=== PATIENT | male | born 1960 | race Caucasian/White ===

== ENCOUNTER → 2025-03-14 | Outpatient (CLI) | payer OTHER, SELFPAY ==
[2025-03-14 09:01] LABS: Alanine Aminotransferase 59 U/L (10-49); Albumin, Serum 4.4 gm/dL (3.4-4.8); Albumin/Globulin Ratio 2.1 (1.2-2.2); Alkaline Phosphatase 70 U/L (46-116); Anion Gap 11 (7-16); Aspartate Amino Transferase 37 U/L (0-34); BUN/Creatinine Ratio 15 Ratio (12-20); Bilirubin,Total 1.1 mg/dL (0.3-1.2); Blood Urea Nitrogen 17 mg/dL (9-23); Calcium 8.9 mg/dL (8.3-10.6); Calcium (Corrected) 8.9 mg/dL (8.5-10.1); Carbon Dioxide 27.9 mMol/L (20.0-31.0); Chloride 107 mMol/L (98-107); Creatinine (Component) 1.1 mg/dL (0.6-1.3); Globulin 2.1 gm/dL (2.3-3.5); Glucose 121 mg/dL (74-106); Osmolality,Calculated 293 (275-295); Sodium 146 mMol/L (136-145); Total Protein 6.5 gm/dL (5.7-8.2); eGFR > 60 See Note
== END | disposition home or self-care (01) ==
PROVIDERS: Referring Provider Orthopaedic Surgery; Visit Provider Orthopaedic Surgery
DX: Z01.89 Encounter for other specified special examinations (principal); Z79.1 Long term (current) use of non-steroidal anti-inflammatories (NSAID)
CPT/HCPCS: 36415; 80053

== ENCOUNTER 2025-07-04 08:23 | Outpatient (AMB) | payer OTHER, SELFPAY ==
[2025-07-04 08:46] VITALS: BP 183/102; PULSE 81; RESP 18; TEMP 36.1; O2SAT 94; BMI 41.1
--- NOTE | 2025-07-04 08:46 | PD.ORTHCLVIS ---
Vital signs 07/04/25 08:46 Height 1.91 m Height Method Measured Weight 149.005 kg Weight Measurement Method Standing Scale BMI 41.1 BP 183/102 H Blood Pressure Source Automatic Cuff Blood Pressure Location Left Upper Arm Position Sitting Respiration 18 Pulse 81 Pulse Source Monitor Temp 96.9 F Temp Source Temporal Artery Scan Pulse Oximetry (%) 94 L Oxygen Delivery Method Room Air Med/Allergies Allergies & Medications Allergies NKA* Allergy (Uncoded 07/04/25 08:48) Medication Reconciliation Losartan Potassium * (COZAAR *) 25 mg PO QDAY #0 tabs 11/13/15 [History Confirmed 07/04/25] Exam Exam Patient is in no acute distress and is cooperative with the examination today. Breathing is nonlabored. In no respiratory distress. Bilateral extremities were evaluated and demonstrates sensation intact to light touch. Palpable pedal pulses are present. No significant edema is present. Bilateral hips were examined. The patient has no pain with log roll of the hips. Internal rotation to 30 degrees and external rotation to 30 degrees is painless. Negative FADIR. The left knee was examined. The left knee is in neutral alignment. Range of motion from 0-120 degrees. Knee is stable to varus and valgus as well as AP translation with <5mm. Patient has a negative McMurrays. There is no pain with patellofemoral compression and no crepitus noted. The knee is nontender to palpation diffusely. The right knee was also examined. The right knee is in neutral alignment. Range of motion from 0-120 degrees. Knee is stable to varus and valgus as well as AP translation with <5mm. Patient has a negative McMurrays. There is no pain with patellofemoral compression and no crepitus noted. The knee is nontender to palpation diffusely. They have a 64-year-old male with x-rays that are done bilaterally at [facility]. This demonstrates complete joint space obliteration medially with varus deformity Assessment and Plan Problem List (1) Arthritis of both knees: Status: Acute Plan: ASSESSMENT AND PLAN 1. Bilateral knee pain: The bilateral knee pain is likely due to arthritis, exacerbated by his weight. Both knees are [id number], with the right knee causing more discomfort. He has not tried injections before but prefers to proceed with surgery. A detailed discussion was held regarding the risks and benefits of total knee replacement surgery using a robot. The procedure involves replacing the surface of the bone with metal and plastic components, made from titanium and cobalt-chromium alloy. Given his age and activity level, a cementless knee replacement is recommended. Most patients can return to sedentary work within 4 to 6 weeks and manual labor jobs within 3 months. Post-surgery, he should apply ice to the knee daily for the first 2 to 4 weeks to manage swelling. A pamphlet detailing the surgery was provided. The student life advisor will contact him to arrange the procedure. The nature and purpose of the total knee replacement, alternative method(s) of treatment, the material risks involved, and the possibility of complications were fully explained to the patient. The patient does NOT have any of the following contraindications to TKA: - Active infection of the knee joint, OR - Active systemic bacteremia, OR - Active skin infection or open wound at surgical site, OR - Neuropathic arthritis, OR - Severe, rapidly progressive neurological disease, OR - Severe medical condition that makes risks of surgery outweigh the potential benefit The patient was told the most common risks and complications associated with a total knee replacement include, but are not limited to: blood clots in the leg, fatal pulmonary embolism, dislocation of the prosthesis, intraoperative and postoperative fractures of the femur or tibia, infection, failure of the prosthesis or grafting materials, complications from anesthesia, reactions to blood transfusions, postoperative leg length inequality, instability of the knee replacement, nerve damage or injury, vascular injury, delayed wound healing, infection, other injury or even . In addition, there are risks associated with anesthesia given during this operation. Also, the patient was told that after undergoing a total knee replacement there may still be persistent pain or disability. The patient was informed that the success of this operation in part depends upon the mechanical devices which are going to be implanted and that these devices can fail or malfunction, and may need to be repaired or replaced and there are no guarantees as to the longevity of this device or its parts and that it or its parts could fail prematurely. The patient was also notified that during the course of surgery, there may be a need to use bone graft from donors, and that any bone graft used will be carefully screened for communicable diseases, including AIDS, hepatitis, Jean Carlos-Creutzfeldt, or other diseases, but despite the screening procedures, there is a small chance that they could contract one of these diseases. Finally, the patient was asked to follow completely and fully with all advice and recommended treatments, and that recovery and ultimate outcome are affected by their compliance with recommended treatment. We discussed the risks, benefits and treatment alternatives, and the patient is interested in proceeding with surgery. We will try to set this up as expeditiously as possible. Office Procedures GNS Level of Care Nursing/Assessment Patient Status: Initial/New Patient Nursing Assessment/Reassesment: Medication Reconciliation, Update PMH in EMR and Vital Signs Coordination of Care: Complex Care and Chronic Disease 1-5, Education Complex Pt/Fam, Consent,records obtained, informed consent, Lab and Imaging orders, Results/Orders obtained and Staff clarify orders New Patient Charge New Patient Point Assignment: 1109 New Patient Point Charge: DRILLER HELPER Level 3 (0299-1220) MA Intake Visit Data Collection New Patient or Established: New Patient (never been to [facility]) Reason for Visit:: BILATERAL KNEE OSTEOARTHRITIS Seen by Clinical Staff ONLY (RN/MA): No Radiological Technologist Required: No PCP or OBGYN visit in last 3 months: Yes Hx Now: No Do You Feel Safe at Home: Yes Authorities Contacted: N/A Questionairres Past Medical History Past Medical History Have you ever been diagnosed with any of the following: Other Problems Blood Transfusions: No Subjective Visit Visit for: new patient and knee Immunization / Flu Flu Vaccine in the Last 12 Months: No Flu Vaccine Exclusion Criteria: Refused by Patient History of Present Illness Chief complaint: BILATERAL KNEE OSTEOARTHRITIS Date of injury / onset of symptoms: 3 YEARS AGO HISTORY OF PRESENT ILLNESS IDarren, have obtained verbal consent from the patient, to be recorded during this encounter which may include, but not limited to, medical history, examination, treatment plans, and relevant health information.? Patient was informed that recording will be read and reviewed by myself before inclusion in the medical chart. The patient is a 64-year-old male who presents with bilateral knee pain. He is accompanied by his . He reports experiencing pain in both knees, which he describes as [id number]. The majority of his pain is localized on the inside of his knees, with some discomfort on the outside. He has not received any injections for this condition and has been managing the pain with ibuprofen. His occupation as an academic records specialist involved extensive walking, which he believes may have contributed to the wear and tear on his knees. He is uncertain if arthritis is a factor. Despite his size, he was previously active but now finds that even a quarter-mile walk necessitates rest. He has consulted with Dr. Chappell and Dr. Santamaria regarding his knee issues. He is considering surgery as a potential solution, as he does not believe injections would provide significant relief. His activity level has decreased due to the pain, and he is concerned about this trend. He experiences more severe pain in his right knee, which occasionally feels unstable when walking. This instability is particularly problematic given the presence of stairs in his home. He also reports difficulty sleeping due to the pain. He has been dealing with these symptoms for approximately 3 years. SOCIAL HISTORY Marital Status: Occupations: cash reconciliation specialist, auto driver Exercise: Walks approximately 1/4 mile in the morning Coffee/Tea/Caffeine-containing Drinks: Consumes 3 cups of coffee daily Personal History Occupation: RETIRED Red flag PMH: none BMI Counceling provided: Yes Pain Pain level (0-10): 3 Pain location: inside (medial) and outside (lateral) Pain quality: tingling Pain timing: increases with activity Associated signs & symptoms: numbness, weakness and stiffness Ambulatory data Ambulatory device: none Treatments Number of previous injections: 0 Improvement with previous injections: No Number of Physical Therapy sessions: 2 Improvement with PT: No Improvement with NSAIDS: yes (IBUPROFEN) Review of Systems Review of Systems: All systems negative unless otherwise noted in HPI.
== END 2025-07-04 09:16 | disposition home or self-care (01) ==
PROVIDERS: PCP Orthopaedic Surgery; Referring Provider Orthopaedic Surgery; Supervising Provider Orthopaedic Surgery Adult Reconstructive Orthopaedic Surgery; Visit Provider Orthopaedic Surgery Adult Reconstructive Orthopaedic Surgery
DX: M17.0 Bilateral primary osteoarthritis of knee (principal); M25.562 Pain in left knee; M25.561 Pain in right knee
CPT/HCPCS: 99203; G0463

== ENCOUNTER → 2025-07-16 | Outpatient (CLI) | payer BC, SELFPAY ==
--- NOTE | 2025-07-16 | XR_ITS ---
EXAMINATION: Bilateral AP knee standing Standing AP upright lateral each knee Right axial left axial knee Technique: Bilateral AP knees standing single view Standing AP oblique lateral right and left knees 6 views Right axial knee left axial knee 2 views total 9 views Date and time: July,, 0746 hours INDICATIONS: Bilateral knee pain beginning 2 years ago FINDINGS: Moderate osteopenia. Severe narrowing [id number] medial joint spaces Bilateral advanced osteoarthritis patellofemoral joints No fractures No patellar dislocations IMPRESSION: Severe narrowing [id number] medial joint spaces Bilateral advanced osteoarthritis patellofemoral joints
== END | disposition home or self-care (01) ==
PROVIDERS: PCP Family Medicine; Referring Provider Orthopaedic Surgery Adult Reconstructive Orthopaedic Surgery; Visit Provider Orthopaedic Surgery Adult Reconstructive Orthopaedic Surgery
DX: M25.862 Other specified joint disorders, left knee (principal); M25.861 Other specified joint disorders, right knee; M17.0 Bilateral primary osteoarthritis of knee
CPT/HCPCS: 73564

== ENCOUNTER 2025-08-12 10:31 | Outpatient (AMB) | payer BC, SELFPAY ==
[2025-08-12 10:59] VITALS: BP 156/84; PULSE 78; RESP 20; TEMP 36.5; O2SAT 96; BMI 40.9
--- NOTE | 2025-08-12 10:59 | ORTHONT_ITS ---
Vital signs 08/12/25 10:59 Height 1.91 m Height Method Measured Weight 149.459 kg Weight Measurement Method Standing Scale BMI 40.9 BP 156/84 H Blood Pressure Source Automatic Cuff Blood Pressure Location Left Upper Arm Position Sitting Respiration 20 Pulse 78 Pulse Source Monitor Temp 97.7 F Temp Source Temporal Artery Scan Pulse Oximetry (%) 96 Oxygen Delivery Method Room Air Med/Allergies Allergies & Medications Allergies NKA* Allergy (Uncoded 08/12/25 11:08) Medication Reconciliation Losartan Potassium * (COZAAR *) 25 mg PO QDAY #0 tabs 11/13/15 [History Confirmed 08/12/25] Exam Exam Patient is in no acute distress and is cooperative with the examination today. Breathing is nonlabored. In no respiratory distress. Bilateral extremities were evaluated and demonstrates sensation intact to light touch. Palpable pedal pulses are present. No significant edema is present. Bilateral hips were examined. The patient has no pain with log roll of the hips. Internal rotation to 30 degrees and external rotation to 30 degrees is painless. Negative FADIR. The left knee was examined. The left knee is in neutral alignment. Range of motion from 0-120 degrees. Knee is stable to varus and valgus as well as AP translation with <5mm. Patient has a negative McMurrays. There is no pain with patellofemoral compression and no crepitus noted. The knee is nontender to palpation diffusely. The right knee was also examined. The right knee is in neutral alignment. Range of motion from 0-120 degrees. Knee is stable to varus and valgus as well as AP translation with <5mm. Patient has a negative McMurrays. There is no pain with patellofemoral compression and no crepitus noted. The knee is nontender to palpation diffusely. They have a 64-year-old male with x-rays that are done bilaterally at [facility]. This demonstrates complete joint space obliteration medially with varus deformity Assessment and Plan Problem List (1) Arthritis of both knees: Status: Acute Plan: ASSESSMENT AND PLAN 1. Bilateral knee pain: The bilateral knee pain is likely due to arthritis, exacerbated by his weight. Both knees are [id number], with the right knee causing more discomfort. He has not tried injections before but prefers to proceed with surgery. A detailed discussion was held regarding the risks and benefits of total knee replacement surgery using a robot. The procedure involves replacing the surface of the bone with metal and plastic components, made from titanium and cobalt-chromium alloy. Given his age and activity level, a cementless knee replacement is recommended. Most patients can return to sedentary work within 4 to 6 weeks and manual labor jobs within 3 months. Post-surgery, he should apply ice to the knee daily for the first 2 to 4 weeks to manage swelling. A pamphlet detailing the surgery was provided. The medical surgery nurse will contact him to arrange the procedure. The nature and purpose of the total knee replacement, alternative method(s) of treatment, the material risks involved, and the possibility of complications were fully explained to the patient. The patient does NOT have any of the following contraindications to TKA: - Active infection of the knee joint, OR - Active systemic bacteremia, OR - Active skin infection or open wound at surgical site, OR - Neuropathic arthritis, OR - Severe, rapidly progressive neurological disease, OR - Severe medical condition that makes risks of surgery outweigh the potential benefit The patient was told the most common risks and complications associated with a total knee replacement include, but are not limited to: blood clots in the leg, fatal pulmonary embolism, dislocation of the prosthesis, intraoperative and postoperative fractures of the femur or tibia, infection, failure of the prosthesis or grafting materials, complications from anesthesia, reactions to blood transfusions, postoperative leg length inequality, instability of the knee replacement, nerve damage or injury, vascular injury, delayed wound healing, infection, other injury or even . In addition, there are risks associated with anesthesia given during this operation. Also, the patient was told that after undergoing a total knee replacement there may still be persistent pain or disability. The patient was informed that the success of this operation in part depends upon the mechanical devices which are going to be implanted and that these devices can fail or malfunction, and may need to be repaired or replaced and there are no guarantees as to the longevity of this device or its parts and that it or its parts could fail prematurely. The patient was also notified that during the course of surgery, there may be a need to use bone graft from donors, and that any bone graft used will be carefully screened for communicable diseases, including AIDS, hepatitis, Jean Carlos-Creutzfeldt, or other diseases, but despite the screening procedures, there is a small chance that they could contract one of these diseases. Finally, the patient was asked to follow completely and fully with all advice and recommended treatments, and that recovery and ultimate outcome are affected by their compliance with recommended treatment. We discussed the risks, benefits and treatment alternatives, and the patient is interested in proceeding with surgery. We will try to set this up as expeditiously as possible. Office Procedures GNS Level of Care Nursing/Assessment Patient Status: Established Patient Nursing Assessment/Reassesment: Medication Reconciliation, Update PMH in EMR and Vital Signs Coordination of Care: Complex Care and Chronic Disease 1-5, Education Complex Pt/Fam, Consent,records obtained, informed consent, Results/Orders obtained and Staff clarify orders Established Patient Charge Established Patient Point Assignment: 95 Established Patient Point Charge: EP Level 3 (80-115) MA Intake Visit Data Collection New Patient or Established: Established Patient (seen at [facility] within 3 years) Reason for Visit:: PRE OP RT TKA Seen by Clinical Staff ONLY (RN/MA): No Athletic Trainer Required: No PCP or OBGYN visit in last 3 months: Yes Hx Now: No Do You Feel Safe at Home: Yes Authorities Contacted: N/A Questionairres Past Medical History Past Medical History Have you ever been diagnosed with any of the following: Other Problems Blood Transfusions: No Subjective Visit Visit for: new patient and knee Immunization / Flu Flu Vaccine in the Last 12 Months: No Flu Vaccine Exclusion Criteria: Refused by Patient History of Present Illness Chief complaint: BILATERAL KNEE OSTEOARTHRITIS Date of injury / onset of symptoms: 3 YEARS AGO HISTORY OF PRESENT ILLNESS IDarren, have obtained verbal consent from the patient, to be recorded during this encounter which may include, but not limited to, medical history, examination, treatment plans, and relevant health information.? Patient was informed that recording will be read and reviewed by myself before inclusion in the medical chart. The patient is a 64-year-old male who presents with bilateral knee pain. He is accompanied by his . He reports experiencing pain in both knees, which he describes as [id number]. The majority of his pain is localized on the inside of his knees, with some discomfort on the outside. He has not received any injections for this condition and has been managing the pain with ibuprofen. His occupation as an inventory taker involved extensive walking, which he believes may have contributed to the wear and tear on his knees. He is uncertain if arthritis is a factor. Despite his size, he was previously active but now finds that even a quarter- mile walk necessitates rest. He has consulted with Dr. Chappell and Dr. Santamaria regarding his knee issues. He is considering surgery as a potential solution, as he does not believe injections would provide significant relief. His activity level has decreased due to the pain, and he is concerned about this trend. He experiences more severe pain in his right knee, which occasionally feels unstable when walking. This instability is particularly problematic given the presence of stairs in his home. He also reports difficulty sleeping due to the pain. He has been dealing with these symptoms for approximately 3 years. SOCIAL HISTORY Marital Status: Occupations: instrument repair specialist, local company truck driver Exercise: Walks approximately 1/4 mile in the morning Coffee/Tea/Caffeine-containing Drinks: Consumes 3 cups of coffee daily Personal History Occupation: RETIRED Red flag PMH: none BMI Counceling provided: Yes Pain Pain level (0-10): 3 Pain location: inside (medial) and outside (lateral) Pain quality: tingling Pain timing: increases with activity Associated signs & symptoms: numbness, weakness and stiffness Ambulatory data Ambulatory device: walker (WALKER WAS GIVEN) Treatments Number of previous injections: 0 Improvement with previous injections: No Number of Physical Therapy sessions: 2 Improvement with PT: No Improvement with NSAIDS: yes (IBUPROFEN) Review of Systems Review of Systems: All systems negative unless otherwise noted in HPI.
== END 2025-08-12 11:14 | disposition home or self-care (01) ==
PROVIDERS: PCP Family Medicine; Referring Provider Family Medicine; Supervising Provider Orthopaedic Surgery Adult Reconstructive Orthopaedic Surgery; Visit Provider Orthopaedic Surgery Adult Reconstructive Orthopaedic Surgery
DX: M17.0 Bilateral primary osteoarthritis of knee (principal)
CPT/HCPCS: 99213; G0463

== ENCOUNTER 2025-08-20 06:40 | Day surgery (SDC) | payer BC, SELFPAY ==
[2025-08-14 08:55] VITALS: BMI 43.6
[2025-08-14 10:35] LABS: Basophils # (Auto) 0.0 Thou/mm3 (0.0-0.2); Basophils % (Auto) 1 % (0-2.5); Eosinophils # (Auto) 0.3 Thou/mm3 (0.0-0.5); Eosinophils % (Auto) 6 % (0-10); Hematocrit 46.8 % (41.0-53.0); Hemoglobin 15.9 g/dL (13.5-16.0); Immature Granulocytes Auto 0.02 Thou/mm3 (0.00-0.00); Lymphocytes # (Auto) 1.5 Thou/mm3 (1.0-4.8); Lymphocytes % (Auto) 32 % (10-50); Mean Corpuscular HGB Conc 34.0 g/dl (31.0-37.0); Mean Corpuscular Hemoglobin 32.7 pg (25.0-35.0); Mean Corpuscular Volume 96 fL (80-100); Monocytes # (Auto) 0.5 Thou/mm3 (0.0-0.8); Monocytes % (Auto) 10 % (0-12); Neutrophils # (Auto) 2.4 Thou/mm3 (1.8-7.7); Neutrophils % (Auto) 51 % (37-80); Nucleated Red Blood Cell # 0.00 Thou/mm3 (0.00-0.00); Nucleated Red Blood Cell % 0 /100 WBC (0); Platelet Count 182 Thou/mm3 (140-440); RDW Standard Deviation 46.3 fL (35.1-43.9); Red Blood Count 4.86 Miln/mm3 (4.50-5.90); White Blood Count 4.6 Thou/mm3 (3.8-10.6)
[2025-08-14 10:45] LABS: Alanine Aminotransferase 142 U/L (10-49); Albumin, Serum 4.8 gm/dL (3.4-4.8); Albumin/Globulin Ratio 2.2 (1.2-2.2); Alkaline Phosphatase 76 U/L (46-116); Anion Gap 8 (7-16); Aspartate Amino Transferase 84 U/L (0-34); BUN/Creatinine Ratio 10 Ratio (12-20); Bilirubin,Total 0.8 mg/dL (0.3-1.2); Blood Urea Nitrogen 12 mg/dL (9-23); Calcium 9.5 mg/dL (8.3-10.6); Calcium (Corrected) 9.5 mg/dL (8.5-10.1); Carbon Dioxide 29.2 mMol/L (20.0-31.0); Chloride 105 mMol/L (98-107); Creatinine (Component) 1.2 mg/dL (0.6-1.3); Estimated Creatinine Clearance 96.2 mL/min (>60); Globulin 2.2 gm/dL (2.3-3.5); Glucose 167 mg/dL (74-106); Osmolality,Calculated 286 (275-295); Potassium 4.8 mMol/L (3.4-5.1); Sodium 142 mMol/L (136-145); Total Protein 7.0 gm/dL (5.7-8.2); eGFR > 60 See Note
[2025-08-14 10:49] LABS: INR 1.0 (0.9-1.3); Partial Thromboplastin Time 25.8 Seconds (22.0-36.0); Prothrombin Time 10.9 Seconds (9.0-12.2)
[2025-08-20] VITALS (14 sets, daily range): BP systolic 124–174; BP diastolic 77–100; PULSE 70–78; RESP 12–22; TEMP 36.2–36.7; O2SAT 94–97; BMI 43.2
--- NOTE | 2025-08-20 07:30 | CHAP ---
Visited with patient and had prayer before procedure.
[2025-08-20] MEDS: ACETAMINOPHEN 325 MG TABLET 650 MG PO (07:39)
[2025-08-20] MEDS: PREGABALIN 75 MG CAPSULE PO (07:40)
[2025-08-20] MEDS: MELOXICAM 7.5 MG TABLET PO (07:40)
--- NOTE | 2025-08-20 09:03 | ESOP_ITS ---
Date of Procedure 08/20/25 Pre Op Diagnosis right knee osteoarthritis Post Op Diagnosis right knee osteoarthritis Procedure right total knee arthroplasty Findings right total knee arthroplasty [facility] Procedure Description Indication: The patient has a long history of right knee pain. X-rays show degenerative arthritis involving the knee. Over the past several years the patient has had increasing pain, progressive limitation in function. He has failed conservative measures including activity modification, physical therapy, injections, anti- inflammatories, and assistive devices. After a lengthy discussion of the risks and benefits, the patient presents now for total knee replacement. The nature and purpose of the total knee replacement, alternative method(s) of treatment, the material risks involved, and the possibility of complications were fully explained to the patient. The patient was told the most common risks and complications associated with a total knee replacement include, but are not limited to blood clots in the leg, fatal pulmonary embolism, dislocation of the prosthesis, intraoperative and postoperative fractures of the femur or tibia, infection, failure of the prosthesis or grafting materials, complications from anesthesia, reactions to blood transfusions, postoperative leg length inequality, instability of the knee replacement, nerve damage or injury, vascular injury, delayed wound healing, infections, other injury or even . In addition, there are risks associated with anesthesia given during this operation, temporary or permanent numbness on the skin lateral to the incision can be a complication unique to total knee surgery, and kneeling can be painful after knee replacement surgery. Also, the patient was told that after undergoing a total knee replacement there may still be pain or disability. We discussed with the patient that we will be using a robot-assisted technology. We discussed that there is a possibility of converting to manual instrumentation. The patient was informed that the success of this operation in part depends upon the mechanical devices which are going to be implanted and that these devices can fail or malfunction, and may need to be repaired or replaced and there are no guarantees as to the longevity of this device or its part and that it or its parts could fail prematurely. Finally, the patient was asked to follow completely and fully with all advice and recommended treatments, and that recovery and ultimate outcome are affected by their compliance with recommended treatment. Surgical technique: Patient was marked and consented in the pre-operative area. The patient was brought to the operating room and placed on the operating table in a supine pos ition. Prior to positioning, a timeout procedure was performed between the surgeon, the anesthesiologist, and the nursing staff where the patient and the operative side were identified and confirmed. After adequate general anesthetic was obtained, the right lower extremity was prepped and draped in the usual sterile fashion. A weight based dose of Cefazolin were administered within 1 hour prior to incision. The robot was preregistered and calibrated before the incision. The extremity was exsanguinated with an esmarch badge and tourniquet inflated to 250mmHg. A midline incision was made. A median parapatellar arthrotomy was made. The patella was subluxed laterally. A medial release was performed to expose the medial tibia. His femoral and tibial pins were placed through an intra incisional manner for both cases. Every effort was made to ensure that the distalmost aspect of the pin was hung in the second cortex. The arrays were then tightened several times to ensure that it was fixed for the remainder of the case. Both femoral and tibial checkpoints were then placed. We then went through the registration process of the bone. We then assessed the knee deformity and attempted to correct it. We also used the robot to aid in judging laxity in both extension and flexion. Final based on laxity and alignment we changed the preoperative assessment to obtain proper proper implant positioning and to correct deformity. Attention was then placed to the tibia. We made a tibial cut using the robot ensuring that both the MCL and the patella tendon were protected with retractors. We then went to the femur and made the posterior cut followed by the anterior cut and the anterior chamfer. The bone was then removed and we made a distal femur cut and a posterior chamfer cut. We verified all cuts. A trial reduction was performed with a size 7 femoral component and a size 7 keeled tibial component. The patella tracked centrally, and no lateral retinacular release was necessary. The trial implants were removed. The arrays, pins, and checkpoints were all removed. We performed a verification that all pins were removed. The cut bone surfaces were lavaged. A size 7 right femoral component, a size 7 keeled tibial component were impacted into position. The knee was felt to be well balanced in the sagittal and coronal plane. The final 2x10 mm cruciate- substituting articular insert was impacted into the tibial tray. The knee was brought out to full extension, flexed up to 120 degrees. It was stable to varus and valgus stress and appropriately balanced in flexion and extension. The wounds were copiously irrigated following deflation of tourniquet. The medial retinaculum was reapproximated with #1 vicryl and quill. The subcutaneous tissues were closed with 0 and 2-0 interrupted Vicryl. The skin was closed with 3-0 Monofilament V loc suture. A sterile dressing was applied. The patient was transferred to a bed and brought to recovery in stable condition. The patient tolerated the procedure well. There were no intraoperative complications. Sponge and needle counts were correct times 2. As the attending surgeon, I attest I was present and performed the entire operation. Grafts/Implants Size 7 CR Femur Size 7 Tibia 9mm poly CS Anesthesia spinal Implants Implants comments: chandler Pathology / specimen None Pathology comment: none Estimated Blood Loss 150 Condition Stable Disposition same day Surgeon Darren Santamaria MD Surgical Staff Operation Date: 08/20/25 10:00 <No data on this case meets the specified criteria>
--- NOTE | 2025-08-20 11:14 | XR_ITS ---
EXAMINATION: Right knee 2 views TECHNIQUE: AP lateral right knee 2 views Date and time: August 20, 2025, 1137 hours INDICATIONS: Postop knee arthroplasty today. FINDINGS: Total right knee arthroplasty. Satisfactory alignment No fracture IMPRESSION: Total right knee arthroplasty with satisfactory alignment
--- NOTE | 2025-08-20 12:19 | SUR.PHASEI ---
1128: Pt received in [facility] via retickrrney. Report from Geena DUNLAP and JOB ANALYSIS MANAGER. Pt groggy, but awake. Resp even, unlabored. VS stable. Dressing to right knee dry, clean, intact. Bilateral pedal pulses strong regular. Sensation at L2 and movement at L5. Denies pain. 1150: Radiology completed right knee x-rays. Pt tolerated procedure with complaints voiced. 1155: Pt has been resting with no complaints voiced. Resp even, unlabored. VS stable. Dressing remains dry, clean, intact. Bilateral pedal pulses remain strong, regular. Denies pain.
--- NOTE | 2025-08-20 12:28 | SUR.PHASEII ---
1205: Pt awake, alert. at bedside. 1210: Pt tolerating po fluids with no difficulty swallowing and no n/v. 1225: Pt consuming lunch meal with no problems. VS stable. Dressing remains dry, clean, intact. Bilateral pedal pulses strong, regular. Denies pain.
--- NOTE | 2025-08-20 16:21 | SUR.PHASEII ---
1330: Pt has been resting with no complaints voiced. VS stable. Dressing remains dry, clean, intact. Denies pain. 1400: Physical Therapy here to assess pt. 1430: Physical Therapy stated pt has met criteria for discharge. Pt and stated understanding of discharge instructions. Pt also instructed to citrus picker his prescriptions from [facility], Otis Guzman. Pt discharged from [facility] in stable condition.
== END 2025-08-20 14:30 | disposition home or self-care (01) ==
PROVIDERS: Anesthesiology; PCP Family Medicine; Referring Provider Orthopaedic Surgery Adult Reconstructive Orthopaedic Surgery; Visit Provider Orthopaedic Surgery Adult Reconstructive Orthopaedic Surgery
PROC: (CPT 20985; principal; 2025-08-20 09:45)
DX: M17.11 Unilateral primary osteoarthritis, right knee (principal)
CPT/HCPCS: 20985; 27447; 36415; 73560; 80053; 85025; 85610; 85730; 97162; A4217; A4649; C1713; C1776; J0690; J1100; J1200; J2250; J2405; J2704; J2765; J3010; J3490; A4648; A9270

== ENCOUNTER 2025-09-01 07:50 | Emergency (ER) | payer BC, SELFPAY ==
--- NOTE | 2025-09-01 07:55 | EKG_ITS ---
[facility] Test Date: 2025-09-01 Pat Name: EITAN ANGEL Department: Room: - Gender: Male Die Technician: : 1960 Requested By: Yani Ghosh Order Number: [id number] Reading MD: Yani Ghosh Measurements Intervals [place] Rate: 75 P: 19 AR: 177 QRS: 96 QRSD: 118 T: -14 QT: 392 QTc: 438 Interpretive Statements SINUS RHYTHM BORDERLINE RIGHT AXIS DEVIATION [QRS AXIS > 90] MODERATE INTRAVENTRICULAR CONDUCTION DELAY [110+ ms QRS DURATION] NONSPECIFIC T-WAVE ABNORMALITY No previous ECG available for comparison /store/[email or web address]/[id number].pdf
[2025-09-01 08:07] VITALS: BP 181/96; PULSE 76; RESP 18; TEMP 36.7; O2SAT 96
--- NOTE | 2025-09-01 08:22 | XR_ITS ---
EXAMINATION: AP chest single view TECHNIQUE: AP portable semiupright chest single view Date and time: September 01, 2025, 0830 hours, comparison September 08, 2006 INDICATIONS: Chest pain chest pressure today. FINDINGS: Normal heart size Prominent right tracheobronchial and hilar mediastinum No lobar pneumonia or pulmonary edema Moderate osteopenia IMPRESSION: Consider CT chest post contrast follow-up to exclude right mediastinal lymphadenopathy
--- NOTE | 2025-09-01 08:34 | PD.EDCHEST ---
ED Chest Pain RME/HPI General Chief Complaint: Chest Pain Stated Complaint: CHEST IS VERY HEAVY Time Seen by Provider: 09/01/25 08:09 Arrival date/time: 09/01/25 07:50 Limitations: no limitations RME / HPI RME / HPI narrative: Patient is a 64-year-old male with medical history notable for hypertension, recent knee replacement surgery this in the emerged primary concerns for chest pressure and pain that started last night. Patient states that he was at his usual state of health, developed chest pain, symptoms did not improve this morning and so he decided to come to the emergency department. Patient does not take any blood thinners however he has been taking aspirin twice a day. Denies fevers, chills, nausea, vomiting, facial discomfort, arm pain, discomfort or heaviness. Denies coughing up blood, however does endorse swelling in the right lower extremity however this has been present since patient surgery. Has never had any symptoms like this before. Patient states that he had cardiac clearance with Dr. Schmid prior to surgery and felt fine. Patient has never had an angiogram. No allergies to medications, no drugs no alcohol no smoke Related Data Home Medications ?Medication ?Instructions ?Recorded ?Confirmed losartan 100 mg tablet 100 mg PO DAILY 08/14/25 09/02/25 Previous Rx's ?Medication ?Instructions ?Recorded aspirin 81 mg tablet,delayed 81 mg PO BID #60 tabs 08/20/25 release doxycycline hyclate 100 mg tablet 100 mg PO BID #14 tabs 08/20/25 gabapentin 300 mg capsule 300 mg PO .qhs #30 caps 08/20/25 sennosides 8.6 mg-docusate sodium 1 tab-cap PO QDAY #30 tabs 08/20/25 50 mg tablet (Senna-S) acetaminophen 500 mg tablet 1,000 mg (2 x 500 mg) PO Q6H PRN 09/02/25 (Acetaminophen Extra Strength) pain #90 tabs cyclobenzaprine 5 mg tablet 5 mg PO QHS PRN muscle spasm #30 09/02/25 tabs ibuprofen 400 mg tablet 400 mg PO Q6H PRN pain #60 tabs 09/02/25 oxycodone 5 mg tablet 5 mg PO Q6H PRN pain #28 tabs 09/02/25 Allergies Allergy/AdvReac Type Severity Reaction Status Date / Time No Known Allergies Allergy Verified 09/02/25 14:56 Review of Systems Review of Systems Systems Reviewed: All systems reviewed, normal except as documented Past Medical History Past Medical History CARDIAC: Positive Hypercholesterolemia and Hypertension GASTROINTESTINAL: Positive Gastrointestinal Disorders and Obesity MUSCULOSKELETAL: Positive Musculoskeletal Disorders and Arthritis ENDOCRINE: Positive Endocrine Disorders Family History FAMILY HISTORY: Positive Family Cardiac Disorders and Family Surgery Surgical History SURGICAL: Positive Arthroscopy (right knee meniscectomy) Social History SMOKING STATUS: Never smoker ED Exam General Limitations: Present no limitations General appearance: Present alert and in no apparent distress Head Head exam: Present atraumatic and normocephalic Eye Eye exam: Present normal appearance and PERRL ENT ENT exam: Present normal exam and normal oropharynx Neck Neck exam: Present normal inspection and full ROM Chest Chest inspection: Present normal inspection and symmetric chest wall rise Respiratory Respiratory exam: Present normal lung sounds bilaterally; Absent respiratory distress Cardiovascular Cardiovascular exam: Present regular rate and normal rhythm Abdominal Exam Abdominal exam: Present soft; Absent distention, tenderness or guarding Extremities Exam Extremities exam: Present other (Swelling and discoloration to the right lower extremity, tenderness at the knee) Neurological Exam Neurological exam: Present alert and other Psychiatric Psychiatric exam: Present normal affect and normal mood Skin Skin exam: Present warm, dry and other Course Quality Measures none Orders Category Date Time Status CT Screening NOW Care 09/01/25 09:58 Completed EKG (ED ONLY) *Do not use* NOW Care 09/01/25 07:[address] angio chest Stat Exams 09/01/25 09:58 Completed CXR [XR chest 1V] Stat Exams 09/01/25 08:22 Completed EKG (ED Only) Stat Exams 09/01/25 07:55 Draft US venous doppler LE RT Stat Exams 09/01/25 08:37 Completed CBC Stat Lab 09/01/25 08:33 Completed CMP [Comprehensive Metabolic Panel] Stat Lab 09/01/25 08:33 Completed D-Dimer Stat Lab 09/01/25 08:33 Completed PT [Prothrombin Time with INR] Stat Lab 09/01/25 08:33 Completed PTT [Partial Thromboplastin Time] Stat Lab 09/01/25 08:33 Completed Troponin I Stat Lab 09/01/25 08:33 Completed Troponin I Stat Lab 09/01/25 10:30 Completed Aspirin [Ecotrin] Med 09/01/25 08:19 Discontinued 81 mg PO X1 STA Nitroglycerin [Nitrostat 1/150] Med 09/01/25 08:19 Discontinued 0.4 mg SL Q5MIN PRN Vital Signs Vital signs: Vital Signs Temperature 98.1 F 09/01/25 08:07 Pulse Rate 76 09/01/25 08:07 Respiratory Rate 18 09/01/25 08:07 Blood Pressure 181/96 H 09/01/25 08:07 Pulse Oximetry (%) 96 09/01/25 08:07 Oxygen Delivery Method Room Air 09/01/25 08:07 Pulse ox is 96% on room air which is adequate. Chest Pain MDM Narrative MDM Narrative:: Patient is a 64-year-old male is in the emerged from concerns for chest pain and pressure since last night. Vital signs and exam as listed. Concern for ACS arrhythmia electrolyte abnormality viral syndrome pneumonia pulmonary embolus among others. Ordered labs EKG chest x-ray also right lower extremity ultrasound concerning for DVT. EKG interpreted by me, performed at 0801, sinus rhythm, heart 75, normal intervals, nonspecific T wave changes, not a cardiac alert. T wave inversions in lead III. Dimer elevated, ordered CT angio of the chest. No acute hematologic abnormality, no significant acute metabolic disturbance. Troponin not elevated. Chest x-ray with prominent right bronchial and tracheal hilar mediastinum. Will order repeat troponin as well. Repeat troponin not elevated, ultrasound of the lower extremity without evidence of DVT. CTA w/o PE however does have thoracic aneurysm <5cm, lung nodule. 1250: I updated patient and family on todays findings. At this time patient reports feeling improved and requesting to go home. Patient will follow up with extractor operator solvent process Dr. Schmid on an outpatient basis. Does not want to be admitted. Patient data External records reviewed:: [facility] previous records Clinical information provided by:: patient Social determinants that could affect healthcare access:: none Patient has the following chronic illnesses:: None How is presenting disease/condition affected by chronic disease/condition?: exacerbated by Evaluation data The following diagnostics were reviewed and interpreted by me:: lab results, radiology exam(s) and EKG tracing(s) Lab and/or radiology exams considered but not ordered:: None Interpretation Summary: Ordering Physician: Yani Grimes MD Date of Service: 09/01/25 Procedure(s): XR chest 1V Accession Number(s): [id number] cc: Frederic Davidson MD; Yani Grimes MD~ EXAMINATION: AP chest single view TECHNIQUE: AP portable semiupright chest single view Date and time: September 01, 2025, 0830 hours, comparison September 08, 2006 INDICATIONS: Chest pain chest pressure today. FINDINGS: Normal heart size Prominent right tracheobronchial and hilar mediastinum No lobar pneumonia or pulmonary edema Moderate osteopenia IMPRESSION: Consider CT chest post contrast follow-up to exclude right mediastinal lymphadenopathy Dictated By: Frederic Davidson MD Signed By: <Electronically signed by Frederic Davidson MD in OV> 09/01/25 0905 Ordering Physician: Yani Grimes MD Date of Service: 09/01/25 Procedure(s): US venous doppler LE RT Accession Number(s): [id number] cc: Johnathan Cruz MD; Yani Grimes MD~ EXAMINATION: US venous doppler LE RT HISTORY: DVT COMPARISON: None. FINDINGS: Ybarra scale, color doppler, and spectral waveforms of the right lower extremity veins. The imaged veins are unremarkable without evidence of internal thrombus. Spectral Doppler imaging demonstrates normal wave forms. The overlying soft tissues are unremarkable. IMPRESSION: Negative for deep venous thrombosis. Dictated By: Johnathan Cruz MD Signed By: <Electronically signed by Johnathan Cruz MD in OV> 09/01/25 1017 Ordering Physician: Yani Grimes MD Date of Service: 09/01/25 Procedure(s): CT angio chest Accession Number(s): [id number] cc: Johnathan Cruz MD; Manfred Bergman DO; Yani Grimes MD~ EXAMINATION: CT angio chest ORDERING PROVIDER: Yani Grimes MD HISTORY: PE TECHNIQUE: Volumetric, helical CT was used to obtain a CT angiogram of the chest with intravenous contrast using pulmonary embolism protocol. Additional 2-D, 3-D, and MIPS reconstructions are created on a separate workstation and submitted for interpretation. Institutional dose reducing protocols were utilized. Imaging was obtained after the uneventful intravenous administration of 100 cc Isovue 370. RADIATION DOSE: DLP 549 mGy-cm COMPARISON: 09/01/2025, chest radiographs.. FINDINGS: PULMONARY VASCULATURE: Normal. No pulmonary embolism. AORTA AND GREAT VESSELS: Ascending aorta measures 4.3 cm. LUNG: In the medial segment of the right middle lobe, series 16 image 193, there is an 8 mm solid benavides shaped noncalcified pulmonary nodule. PLEURAL SPACE: No pleural effusion or pneumothorax. HEART: Within normal limits. MEDIASTINUM: No mass or lymphadenopathy identified. Along the right aspect of the trachea and esophagus is a 1.9 cm air-filled outpouching without obvious connection to either. AIRWAYS: Major airways unremarkable. OTHER: No significant. CHEST WALL: Normal. UPPER ABDOMEN: Gallbladder size is at the upper limits of normal without surrounding inflammatory changes. BONES: Mild multilevel disc osteophytes. IMPRESSION: 1. No CT evidence for pulmonary embolism. 2. Right middle lobe 8 mm solid pulmonary nodule. Per Fleischner criteria, recommend follow-up noncontrast chest CT in 6 months. 3. Air-filled outpouching to the right of the trachea and esophagus may represent a small diverticulum. Recommend correlation with history of swallowing difficulties or aspiration. 4. Mildly aneurysmal ascending aorta measuring up to 4.3 cm. Dictated By: Johnathan Cruz MD Signed By: <Electronically signed by Johnathan Cruz MD in OV> 09/01/25 1156 Medications / Prescriptions Medications or Prescriptions considered but not ordered:: None Medication administrations:: Medication Administration History Discontinued Medications Aspirin (Aspirin Ec 81 Mg Tabec) 81 mg PO X1 STA Stop: 09/01/25 08:20 Last Admin: 09/01/25 08:38 Dose: 81 mg Documented By: AA Nitroglycerin (Nitroglycerin 0.4 Mg Subl Btl #25) 0.4 mg SL Q5MIN PRN PRN Reason: CHEST PAIN Last Admin: 09/01/25 08:38 Dose: 1 bottle Documented By: AA See above Consultations Consultation(s) initiated? (list below): No Diagnosis Most likely diagnosis given after review of the tests above:: Chest pain Admission Indicated Admission indicated?: not indicated Explain why admission is indicated or not indicated:: With no condition needing emergent intervention, there was no indication for admission. Admission Request Was there a request for admission?: No Disposition Plan Disposition Plan: Discharge Discharge Attestation Discharge Attestation: The patient and all family members were given an opportunity to ask questions and understood the discharge instructions. Discharge instructions specifically effects, indications for sooner follow up or return to the emergency department, and the expected course of current diagnosis. Patient condition: Stable Discharge Plan Plan Patient Disposition: HOME (Self Care) Prescriptions/Referrals Prescriptions/Med Rec: No Action oxycodone 5 mg tablet 5 mg PO Q6H MDD 20 PRN (Reason: pain) Qty: 28 0RF Rx Instructions: z96.65 acetaminophen [Acetaminophen Extra Strength] 500 mg tablet 1,000 mg PO Q6H MDD 1000mg PRN (Reason: pain) Qty: 90 0RF cyclobenzaprine 5 mg tablet 5 mg PO QHS PRN (Reason: muscle spasm) Qty: 30 0RF ibuprofen 400 mg tablet 400 mg PO Q6H PRN (Reason: pain) Qty: 60 0RF losartan 100 mg tablet 100 mg PO DAILY Patient Comments: TAKE 1 TABLET BY MOUTH EVERY DAY DIRECTED sennosides-docusate sodium [Senna-S] 8.6-50 mg tablet 1 tab-cap PO QDAY Qty: 30 0RF aspirin 81 mg tablet,delayed release (DR/EC) 81 mg PO BID Qty: 60 0RF gabapentin 300 mg capsule 300 mg PO .qhs Qty: 30 0RF doxycycline hyclate 100 mg tablet 100 mg PO BID Qty: 14 0RF Problem List Clinical Impression: Chest pain Patient/Caregiver Discharge Instructions Education Materials: ED Chest Pain, Uncertain Cause Additional Instructions: Please follow up with your primary care doctor within 1-2 days. It important that you follow-up with your extractor operator solvent process this week for further evaluation and is you presented with chest pain and your cardiac enzyme was normal on 2 separate assessments and your CT angio of your chest did not identify any evidence of a blood clot or other acute abnormalities. The CT scan of your chest did identify that you have a lung nodule. It is important that you follow-up with your primary care doctor and discuss this and monitor closely. Print Language: Tristanian Stand Alone Forms: [employer] Patient Portal Info Letter
--- NOTE | 2025-09-01 08:37 | XR_ITS ---
EXAMINATION: US venous doppler LE RT HISTORY: DVT COMPARISON: None. FINDINGS: Ybarra scale, color doppler, and spectral waveforms of the right lower extremity veins. The imaged veins are unremarkable without evidence of internal thrombus. Spectral Doppler imaging demonstrates normal wave forms. The overlying soft tissues are unremarkable. IMPRESSION: Negative for deep venous thrombosis.
[2025-09-01 08:38] VITALS: BP 177/106; PULSE 80
[2025-09-01] MEDS: NITROGLYCERIN 0.4 MG SUBL BTL #25 SL (08:38)
[2025-09-01] MEDS: ASPIRIN EC 81 MG TABEC PO (08:38)
[2025-09-01 08:54] LABS: Basophils # (Auto) 0.0 Thou/mm3 (0.0-0.2); Basophils % (Auto) 1 % (0-2.5); Eosinophils # (Auto) 0.2 Thou/mm3 (0.0-0.5); Eosinophils % (Auto) 4 % (0-10); Hematocrit 41.0 % (41.0-53.0); Hemoglobin 13.9 g/dL (13.5-16.0); Immature Granulocytes Auto 0.04 Thou/mm3 (0.00-0.00); Lymphocytes # (Auto) 0.9 Thou/mm3 (1.0-4.8); Lymphocytes % (Auto) 18 % (10-50); Mean Corpuscular HGB Conc 33.9 g/dl (31.0-37.0); Mean Corpuscular Hemoglobin 32.0 pg (25.0-35.0); Mean Corpuscular Volume 94 fL (80-100); Monocytes # (Auto) 0.5 Thou/mm3 (0.0-0.8); Monocytes % (Auto) 10 % (0-12); Neutrophils # (Auto) 3.5 Thou/mm3 (1.8-7.7); Neutrophils % (Auto) 66 % (37-80); Nucleated Red Blood Cell # 0.00 Thou/mm3 (0.00-0.00); Nucleated Red Blood Cell % 0 /100 WBC (0); Platelet Count 278 Thou/mm3 (140-440); RDW Standard Deviation 43.1 fL (35.1-43.9); Red Blood Count 4.35 Miln/mm3 (4.50-5.90); White Blood Count 5.3 Thou/mm3 (3.8-10.6)
[2025-09-01 09:10] LABS: Alanine Aminotransferase 78 U/L (10-49); Albumin, Serum 4.8 gm/dL (3.4-4.8); Albumin/Globulin Ratio 1.9 (1.2-2.2); Alkaline Phosphatase 91 U/L (46-116); Anion Gap 9 (7-16); Aspartate Amino Transferase 44 U/L (0-34); BUN/Creatinine Ratio 13 Ratio (12-20); Bilirubin,Total 1.0 mg/dL (0.3-1.2); Blood Urea Nitrogen 12 mg/dL (9-23); Calcium 9.4 mg/dL (8.3-10.6); Calcium (Corrected) 9.4 mg/dL (8.5-10.1); Carbon Dioxide 26.4 mMol/L (20.0-31.0); Chloride 104 mMol/L (98-107); Creatinine (Component) 0.9 mg/dL (0.6-1.3); Globulin 2.5 gm/dL (2.3-3.5); Glucose 170 mg/dL (74-106); Osmolality,Calculated 281 (275-295); Potassium 4.1 mMol/L (3.4-5.1); Sodium 139 mMol/L (136-145); Total Protein 7.3 gm/dL (5.7-8.2); Troponin I < 0.020 ng/mL (0.0-0.045); eGFR > 60 See Note
[2025-09-01 09:16] LABS: INR 1.1 (0.9-1.3); Partial Thromboplastin Time 26.8 Seconds (22.0-36.0); Prothrombin Time 11.2 Seconds (9.0-12.2)
[2025-09-01 09:21] LABS: D-Dimer 3080 ng/mL (<600)
--- NOTE | 2025-09-01 09:58 | XR_ITS ---
EXAMINATION: CT angio chest ORDERING PROVIDER: Yani Griems MD HISTORY: PE TECHNIQUE: Volumetric, helical CT was used to obtain a CT angiogram of the chest with intravenous contrast using pulmonary embolism protocol. Additional 2-D, 3-D, and MIPS reconstructions are created on a separate workstation and submitted for interpretation. Institutional dose reducing protocols were utilized. Imaging was obtained after the uneventful intravenous administration of 100 cc Isovue 370. RADIATION DOSE: DLP 549 mGy-cm COMPARISON: 09/01/2025, chest radiographs.. FINDINGS: PULMONARY VASCULATURE: Normal. No pulmonary embolism. AORTA AND GREAT VESSELS: Ascending aorta measures 4.3 cm. LUNG: In the medial segment of the right middle lobe, series 16 image 193, there is an 8 mm solid benavides shaped noncalcified pulmonary nodule. PLEURAL SPACE: No pleural effusion or pneumothorax. HEART: Within normal limits. MEDIASTINUM: No mass or lymphadenopathy identified. Along the right aspect of the trachea and esophagus is a 1.9 cm air-filled outpouching without obvious connection to either. AIRWAYS: Major airways unremarkable. OTHER: No significant. CHEST WALL: Normal. UPPER ABDOMEN: Gallbladder size is at the upper limits of normal without surrounding inflammatory changes. BONES: Mild multilevel disc osteophytes. IMPRESSION: 1. No CT evidence for pulmonary embolism. 2. Right middle lobe 8 mm solid pulmonary nodule. Per Fleischner criteria, recommend follow-up noncontrast chest CT in 6 months. 3. Air-filled outpouching to the right of the trachea and esophagus may represent a small diverticulum. Recommend correlation with history of swallowing difficulties or aspiration. 4. Mildly aneurysmal ascending aorta measuring up to 4.3 cm.
[2025-09-01 10:22] VITALS: BP 180/97; PULSE 75; RESP 18; TEMP 36.7; O2SAT 97
[2025-09-01 10:54] LABS: Troponin I < 0.020 ng/mL (0.0-0.045)
[2025-09-01 12:16] VITALS: BP 155/87; PULSE 73; TEMP 36.9; O2SAT 96
== END 2025-09-01 13:32 | disposition home or self-care (01) ==
PROVIDERS: Emergency Provider Emergency Medicine; PCP Family Medicine
DX: I71.21 Aneurysm of the ascending aorta, without rupture (principal); R91.1 Solitary pulmonary nodule; K22.89 Other specified disease of esophagus; J93.82 Other air leak; R07.89 Other chest pain; Z86.718 Personal history of other venous thrombosis and embolism; I45.89 Other specified conduction disorders; I10 Essential (primary) hypertension
CPT/HCPCS: 36415; 71045; 71275; 80053; 84484; 85025; 85379; 85610; 85730; 93005; 93971; 99283; A4649; Q9967; A9270

== ENCOUNTER 2025-09-02 14:32 | Outpatient (AMB) | payer BC, SELFPAY ==
--- NOTE | 2025-09-02 14:53 | ORTHONT_ITS ---
Vital signs 09/02/25 14:54 Height 1.85 m Height Method Stated Weight 148.041 kg Weight Measurement Method Standing Scale BMI 43.2 BP 147/77 H Blood Pressure Source Automatic Cuff Blood Pressure Location Left Upper Arm Position Sitting Respiration 18 Pulse 83 Pulse Source Monitor Temp 97.7 F Temp Source Temporal Artery Scan Pulse Oximetry (%) 95 Oxygen Delivery Method Room Air Med/Allergies Allergies & Medications Allergies No Known Allergies Allergy (Verified 09/02/25 14:56) Medication Reconciliation losartan 100 mg tablet 100 mg PO DAILY 08/14/25 [History Confirmed 09/02/25] aspirin 81 mg tablet,delayed release 81 mg PO BID #60 tabs 08/20/25 [Rx Confirmed 09/02/25] doxycycline hyclate 100 mg tablet 100 mg PO BID #14 tabs 08/20/25 [Rx Confirmed 09/02/25] gabapentin 300 mg capsule 300 mg PO .qhs #30 caps 08/20/25 [Rx Confirmed 09/02/25] sennosides 8.6 mg-docusate sodium 50 mg tablet (Senna-S) 1 tab-cap PO QDAY #30 tabs 08/20/25 [Rx Confirmed 09/02/25] acetaminophen 500 mg tablet (Acetaminophen Extra Strength) 1,000 mg (2 x 500 mg) PO Q6H PRN pain #90 tabs 09/02/25 [Rx] cyclobenzaprine 5 mg tablet 5 mg PO QHS PRN muscle spasm #30 tabs 09/02/25 [Rx] ibuprofen 400 mg tablet 400 mg PO Q6H PRN pain #60 tabs 09/02/25 [Rx] oxycodone 5 mg tablet 5 mg PO Q6H PRN pain #28 tabs 09/02/25 [Rx] Exam Exam Patient is in no acute distress and is cooperative with the examination today. Breathing is nonlabored. Patient has a normal mood and affect. Bilateral extremities were evaluated and demonstrates sensation intact to light touch. Palpable pedal pulses are present. No significant edema is present. Bilateral hips were examined. The patient has no pain with log roll of the hips. Internal rotation to 30 degrees and external rotation to 30 degrees is painless. Negative FADIR. Right knee was examined today. The right knee is in neutral alignment. The incision is clean dry and intact. Assessment and Plan Problem List (1) Arthritis of both knees: Status: Acute Plan: Patient is doing well status post right total knee replacement. Will see him back in 4 weeks for routine follow-up. I sent him a muscle relaxer. He should finish his aspirin. He is doing well Office Procedures GNS Level of Care Nursing/Assessment Patient Status: Established Patient Nursing Assessment/Reassesment: Medication Reconciliation, Update PMH in EMR and Vital Signs Coordination of Care: Complex Care and Chronic Disease 1-5, Education Complex Pt/Fam, Consent,records obtained, informed consent, Results/Orders obtained and Staff clarify orders Established Patient Charge Established Patient Point Assignment: 95 Established Patient Point Charge: Level 3 (80-115) MA Intake Visit Data Collection New Patient or Established: Established Patient (seen at [facility] within 3 years) Reason for Visit:: 2 WK R TKA Seen by Clinical Staff ONLY (RN/MA): No Transplant Case Manager Required: No PCP or OBGYN visit in last 3 months: Yes Hx Now: No Do You Feel Safe at Home: Yes Authorities Contacted: N/A Questionairres Past Medical History Past Medical History Have you ever been diagnosed with any of the following: Neurological Problems Seizures: No Cardiology Problems Hypercholesterolemia: Yes Congestive Heart Failure: No Hypertension: Yes Respiratory Problems Chronic Obstructive Pulmonary Disease (COPD): No Asthma: No Stomache/Intestinal Problems Obesity: Yes Genital/Urinary Problems Renal Disease: No Musculoskeletal Problems Arthritis: Yes Endocrine Problems Diabetes Mellitus Type 1: No Diabetes Mellitus Type 2: No Blood Problems Sickle Cell Disease: No Other Problems Hospitalization: No Shingles: No Blood Transfusions: No Blood Transfusion Reaction: No Anesthesia Reactions: No MRSA: No Clostridium Difficile: No Cancer: No Subjective Visit Visit for: follow up visit and knee Immunization / Flu Flu Vaccine in the Last 12 Months: No Flu Vaccine Exclusion Criteria: Refused by Patient History of Present Illness Chief complaint: 2 WEEK R TKA Date of injury / onset of symptoms: 3 YEARS AGO HISTORY OF PRESENT ILLNESS I, Darren Santamaria, have obtained verbal consent from the patient, to be recorded during this encounter which may include, but not limited to, medical history, examination, treatment plans, and relevant health information.? Patient was informed that recording will be read and reviewed by myself before inclusion in the medical chart. The patient is a 64-year-old male who presents with bilateral knee pain. He is accompanied by his . He is doing well status post right total knee replacement. Will see him back in 4 weeks routine follow-up Personal History Occupation: RETIRED Red flag PMH: none BMI Counceling provided: Yes Pain Pain level (0-10): 3 Pain location: anterior Pain quality: tingling Pain timing: increases with activity Associated signs & symptoms: none Ambulatory data Ambulatory device: none Treatments Number of previous injections: 0 Improvement with previous injections: No Number of Physical Therapy sessions: 2 Improvement with PT: No Improvement with NSAIDS: yes (IBUPROFEN) Review of Systems Review of Systems: All systems negative unless otherwise noted in HPI.
[2025-09-02 14:54] VITALS: BP 147/77; PULSE 83; RESP 18; TEMP 36.5; O2SAT 95; BMI 43.2
== END 2025-09-02 15:13 | disposition home or self-care (01) ==
LOC: HODSRG 14:32
PROVIDERS: PCP Family Medicine; Referring Provider Family Medicine; Supervising Provider Orthopaedic Surgery Adult Reconstructive Orthopaedic Surgery; Visit Provider Orthopaedic Surgery Adult Reconstructive Orthopaedic Surgery
DX: Z47.1 Aftercare following joint replacement surgery (principal); Z96.651 Presence of right artificial knee joint; M25.562 Pain in left knee; M25.561 Pain in right knee; M17.12 Unilateral primary osteoarthritis, left knee; I10 Essential (primary) hypertension; E66.9 Obesity, unspecified; Z68.42 Body mass index [BMI] 45.0-49.9, adult
CPT/HCPCS: 99213; G0463

== ENCOUNTER 2025-09-30 13:57 | Outpatient (AMB) | payer BC, SELFPAY ==
[2025-09-30 14:08] VITALS: BP 156/90; PULSE 87; RESP 19; TEMP 36.8; O2SAT 98; BMI 43.3
--- NOTE | 2025-09-30 14:08 | ORTHONT_ITS ---
Vital signs 09/30/25 14:08 Height 1.85 m Height Method Stated Weight 148.325 kg Weight Measurement Method Standing Scale BMI 43.3 BP 156/90 H Blood Pressure Source Automatic Cuff Blood Pressure Location Left Upper Arm Position Sitting Respiration 19 Pulse 87 Pulse Source Monitor Temp 98.2 F Temp Source Temporal Artery Scan Pulse Oximetry (%) 98 Oxygen Delivery Method Room Air Med/Allergies Allergies & Medications Allergies No Known Allergies Allergy (Verified 09/30/25 14:09) Medication Reconciliation losartan 100 mg tablet 100 mg PO DAILY 08/14/25 [History Confirmed 09/30/25] aspirin 81 mg tablet,delayed release 81 mg PO BID #60 tabs 08/20/25 [Rx Confirmed 09/30/25] doxycycline hyclate 100 mg tablet 100 mg PO BID #14 tabs 08/20/25 [Rx Confirmed 09/30/25] gabapentin 300 mg capsule 300 mg PO .qhs #30 caps 08/20/25 [Rx Confirmed 09/30/25] sennosides 8.6 mg-docusate sodium 50 mg tablet (Senna-S) 1 tab-cap PO QDAY #30 tabs 08/20/25 [Rx Confirmed 09/30/25] acetaminophen 500 mg tablet (Acetaminophen Extra Strength) 1,000 mg (2 x 500 mg) PO Q6H PRN pain #90 tabs 09/02/25 [Rx Confirmed 09/30/25] cyclobenzaprine 5 mg tablet 5 mg PO QHS PRN muscle spasm #30 tabs 09/02/25 [Rx Confirmed 09/30/25] ibuprofen 400 mg tablet 400 mg PO Q6H PRN pain #60 tabs 09/02/25 [Rx Confirmed 09/30/25] oxycodone 5 mg tablet 5 mg PO Q6H PRN pain #28 tabs 09/23/25 [Rx Confirmed 09/30/25] Exam Exam Patient is in no acute distress and is cooperative with the examination today. Breathing is nonlabored. Patient has a normal mood and affect. Bilateral extremities were evaluated and demonstrates sensation intact to light touch. Palpable pedal pulses are present. No significant edema is present. Bilateral hips were examined. The patient has no pain with log roll of the hips. Internal rotation to 30 degrees and external rotation to 30 degrees is painless. Negative FADIR. Right knee was examined today. The right knee is in neutral alignment. The incision is clean dry and intact. Range of motion of the right knee is 0 to 110 degrees Left knee was examined today. Range of motion is 0 to 100 degrees. The knee is in significant varus. Assessment and Plan Problem List (1) Arthritis of both knees: Status: Acute Plan: Patient is doing well status post right total knee replacement. He is doing well status post right total knee replacement. The left knee is affecting his quality life and happiness. He tried multiple anti-inflammatories as well as formal physical therapy and anti-inflammatories. He thus would like to get this fixed. We thus discussed total knee replacement on the left side is reasonable The nature and purpose of the total knee replacement, alternative method(s) of treatment, the material risks involved, and the possibility of complications were fully explained to the patient. The patient does NOT have any of the following contraindications to TKA: - Active infection of the knee joint, OR - Active systemic bacteremia, OR - Active skin infection or open wound at surgical site, OR - Neuropathic arthritis, OR - Severe, rapidly progressive neurological disease, OR - Severe medical condition that makes risks of surgery outweigh the potential benefit The patient was told the most common risks and complications associated with a total knee replacement include, but are not limited to: blood clots in the leg, fatal pulmonary embolism, dislocation of the prosthesis, intraoperative and postoperative fractures of the femur or tibia, infection, failure of the prosthesis or grafting materials, complications from anesthesia, reactions to blood transfusions, postoperative leg length inequality, instability of the knee replacement, nerve damage or injury, vascular injury, delayed wound healing, infection, other injury or even . In addition, there are risks associated with anesthesia given during this operation. Also, the patient was told that after undergoing a total knee replacement there may still be persistent pain or disability. The patient was informed that the success of this operation in part depends upon the mechanical devices which are going to be implanted and that these devices can fail or malfunction, and may need to be repaired or replaced and there are no guarantees as to the longevity of this device or its parts and that it or its parts could fail prematurely. The patient was also notified that during the course of surgery, there may be a need to use bone graft from donors, and that any bone graft used will be carefully screened for communicable diseases, including AIDS, hepatitis, Jean Carlos-Creutzfeldt, or other diseases, but despite the screening procedures, there is a small chance that they could contract one of these diseases. Finally, the patient was asked to follow completely and fully with all advice and recommended treatments, and that recovery and ultimate outcome are affected by their compliance with recommended treatment. We discussed the risks, benefits and treatment alternatives, and the patient is interested in proceeding with surgery. We will try to set this up as expeditiously as possible. Office Procedures GNS Level of Care Nursing/Assessment Patient Status: Established Patient Nursing Assessment/Reassesment: Medication Reconciliation, Update PMH in EMR and Vital Signs Coordination of Care: Complex Care and Chronic Disease 1-5, Education Complex Pt/Fam, Consent,records obtained, informed consent, Results/Orders obtained and Staff clarify orders Established Patient Charge Established Patient Point Assignment: 95 Established Patient Point Charge: Level 3 (80-115) MA Intake Visit Data Collection New Patient or Established: Established Patient (seen at [facility] within 3 years) Reason for Visit:: R TKA FU Seen by Clinical Staff ONLY (RN/MA): No Wheel Adjuster Required: No PCP or OBGYN visit in last 3 months: Yes Hx Now: No Do You Feel Safe at Home: Yes Authorities Contacted: N/A Questionairres Past Medical History Past Medical History Have you ever been diagnosed with any of the following: Neurological Problems Seizures: No Cardiology Problems Hypercholesterolemia: Yes Congestive Heart Failure: No Hypertension: Yes Respiratory Problems Chronic Obstructive Pulmonary Disease (COPD): No Asthma: No Stomache/Intestinal Problems Obesity: Yes Genital/Urinary Problems Renal Disease: No Musculoskeletal Problems Arthritis: Yes Endocrine Problems Diabetes Mellitus Type 1: No Diabetes Mellitus Type 2: No Blood Problems Sickle Cell Disease: No Other Problems Hospitalization: No Shingles: No Blood Transfusions: No Blood Transfusion Reaction: No Anesthesia Reactions: No MRSA: No Clostridium Difficile: No Cancer: No Subjective Visit Visit for: follow up visit and knee Immunization / Flu Flu Vaccine in the Last 12 Months: No Flu Vaccine Exclusion Criteria: Refused by Patient History of Present Illness Chief complaint: 2 WEEK R TKA Date of injury / onset of symptoms: 3 YEARS AGO HISTORY OF PRESENT ILLNESS IDarren, have obtained verbal consent from the patient, to be recorded during this encounter which may include, but not limited to, medical history, examination, treatment plans, and relevant health information.? Patient was informed that recording will be read and reviewed by myself before inclusion in the medical chart. The patient is a 64-year-old male who presents with bilateral knee pain. He is accompanied by his . He is doing well status post right total knee replacement. He is 6 weeks out from surgery at this point. The left knee is impacting his quality of life and happiness. He has tried NSAIDS on the left and a brace. He is using a cane and would like to get this replaced. Personal History Occupation: RETIRED Red flag PMH: none BMI Counceling provided: Yes Pain Pain level (0-10): 3 Pain location: anterior Pain quality: tingling Pain timing: increases with activity Associated signs & symptoms: none Ambulatory data Ambulatory device: none Treatments Number of previous injections: 0 Improvement with previous injections: No Number of Physical Therapy sessions: 2 Improvement with PT: No Improvement with NSAIDS: yes (IBUPROFEN) Review of Systems Review of Systems: All systems negative unless otherwise noted in HPI.
== END 2025-09-30 14:14 | disposition home or self-care (01) ==
LOC: HODSRG 13:57
PROVIDERS: PCP Family Medicine; Referring Provider Family Medicine; Supervising Provider Orthopaedic Surgery Adult Reconstructive Orthopaedic Surgery; Visit Provider Orthopaedic Surgery Adult Reconstructive Orthopaedic Surgery
DX: Z47.1 Aftercare following joint replacement surgery (principal); Z96.651 Presence of right artificial knee joint; M17.12 Unilateral primary osteoarthritis, left knee; M25.562 Pain in left knee; M25.561 Pain in right knee; I10 Essential (primary) hypertension; E66.9 Obesity, unspecified; Z68.41 Body mass index [BMI] 40.0-44.9, adult
CPT/HCPCS: 99213; G0463